=== PATIENT | female | born 1960 | race Caucasian/White ===

== ENCOUNTER → 2019-08-31 | Outpatient (CLI) | payer OTHER ==
--- NOTE | 2019-08-31 15:26 | Diagnostic Imaging Report ---
PROCEDURE: US carotid duplex, bilateral. TECHNIQUE: Multiple real-time grayscale images were obtained over the carotid arteries in various projections, bilaterally. Additional spectral analysis and color Doppler duplex images were also obtained. INDICATION: Central retinal vein occlusion. FINDINGS: No significant plaquing is seen in either carotid system. Velocities are normal bilaterally. No velocity elevation or stenosis is identified. Both vertebral arteries show antegrade flow. Incidental note is made of a solid left lobe thyroid nodule measuring 3.0 x 1.3 x 1.0 cm. IMPRESSION: 1. No hemodynamically significant stenosis is detected. 2. Left lobe thyroid nodule. Dedicated thyroid ultrasound would be useful for further evaluation. Parameters based on the consensus panel Lazaro-Scale and Doppler ultrasound criteria published September 2003, Radiology, Volume 229. DOPPLER (peak systolic velocity M/S Right Left CCA 0.75 0.86 ICA Proximal 0.78 0.57 ICA Mid 0.92 0.71 ICA Distal 0.85 0.77 RATIO 1.22 0.90 ECA 0.82 0.80 VERT 0.29 0.38 Dictated by: Dictated on workstation # [id number]
== END ==
LOC: CARD 14:02
PROVIDERS: ATTEND Internal Medicine
DX: H34.8110 Central retinal vein occlusion, right eye, with macular edema (principal); E04.1 Nontoxic single thyroid nodule
CPT/HCPCS: 93306; 93880

== ENCOUNTER → 2019-09-13 | Outpatient (CLI) | payer OTHER ==
--- NOTE | 2019-09-13 13:34 | Diagnostic Imaging Report ---
EXAMINATION: US Thyroid. TECHNIQUE: Multiple real-time grayscale images were obtained of the thyroid in various projections. HISTORY: THYROID NODULE FINDINGS: No comparison available. The right lobe of the thyroid measures 4.2 x 1.3 x 1.2 cm. The left lobe of the thyroid measures 4.8 x 1.6 x 1.9 cm. The isthmus measures 0.3 cm. The size and echogenicity of the thyroid is normal. Left-sided thyroid nodule is seen. There is a left midpole mixed cystic and solid, isoechoic nodule with macrocalcifications measuring 2.8 x 1.5 x 1.4 cm. The assessment is TI-RADS 3. Fine-needle aspiration is recommended based on its size. IMPRESSION: 1. Mildly suspicious (TI-RADS 3) left-sided thyroid nodule for which fine-needle aspiration is recommended due to its size. TIRADS categories: TIRADS 1: Benign No FNA or follow-up required TIRADS 2: Not Suspicious No FNA or follow-up required TIRADS 3: Mildly Suspicious FNA if ? 2.5 cm Follow if ? 1.5 cm (At 1, 3 and 5 years from initial scan) TIRADS 4: Moderately Suspicious FNA if ? 1.5 cm Follow if ? 1 cm (At 1, 2, 3 and 5 years from initial scan) TIRADS 5: Highly Suspicious FNA if ? 1 cm Follow if ? 0.5 cm (Annually for 5 years from initial scan) Dictated by: Dictated on workstation # [id number]
== END ==
LOC: RAD 12:04
PROVIDERS: ATTEND Internal Medicine
DX: E04.1 Nontoxic single thyroid nodule (principal)
CPT/HCPCS: 76536